=== PATIENT | female | born 1945 | race Caucasian/White ===

== ENCOUNTER 2016-10-28 16:32 | Observation (INO) | payer MEDICARE, OTHER ==
[2016-10-28 16:56] LABS: Hematocrit 40.6 % (37.0-47.0); Hemoglobin 13.2 gm/dL (12.5-16.0); Mean Cell Volume 92.7 fl (78-100); Mean Corpuscular Hemoglobin 30.1 pg (27-31); Mean Corpuscular Hgb Conc 32.5 g/dl (32-36); Mean Platelet Volume 8.6 fl (6.0-9.5); Neutrophil # 4.8 K/mm3 (1.3-6.0); Neutrophil % 63.2 % (42-75.0); Platelet Count 227 K/mm3 (150-450); Red Blood Count 4.38 M/mm3 (4.2-5.4); Red Cell Distribution Width 13.1 % (11.5-14.0); White Blood Count 7.5 K/mm3 (4.0-10.5)
--- NOTE | 2016-10-28 16:56 | ERNOTE ---
Isabel Coma Scale - Assess Eye Opening: Spontaneous Motor: Obeys Commands Verbal: Oriented - Total Coma Scale Total: 15 Initial Stroke Assessment - Date/Time of assessment Stroke Scale Date: 10/28/16 Stroke Scale Time: 16:52 - NIH Stroke Scale Level of Consciousness: Alert LOC Questions (Year and Age): Answers both correctly LOC Commands (open/close eyes/fist): Performs both correctly Lateral Gaze Paresis: None Visual Field Loss: No visual loss Facial Palsy: Minor paralysis Right Arm Motor (10 sec hold): No drift Left Arm Motor (10 sec hold): No drift Right Leg Motor (5 sec hold): No drift Left Leg Motor (5 sec hold): Drift - Paient has Hx of previous stroke with L side weakness Limb Ataxia (finger/nose heel/lagos): Present in 1 limb If present, ataxia in:: Left leg Sensory Loss (pinprick arms/legs/face): No sensory loss Language Aphasia (description/naming/reading): No aphasia; normal Dysarthria (speech clarity): Normal articulation Neglect Inattention (visual/tactile/auditory/spatial/person): No neglect Initial Stroke Scale Score:: 3 - Stroke Risk Assessment Stroke Risk Assessment Level: 1-4 Mild Impairment Stroke Inclusion/Exclusion Cri - A Inclusion (Must answer Yes to meet): Yes, but patient had a recent stroke with L side residual deficits. - Inclusion Questions: Yes Onset of symptoms <3 1/2 hours of admission to ETC: Yes - Exclusion Questions: Major symptoms rapidly improving: Yes Seizure at onset of stroke: No Stroke, head injury, major surgery, serious trauma in 3 mon.: Yes Secondary Stroke Assessment - Date/Time of assessment Stroke Scale Date: 3 Stroke Scale Time: 17:56 - NIH Stroke Scale Level of Consciousness: Alert LOC Questions (Year and Age): Answers both correctly LOC Commands (open/close eyes/fist): Performs both correctly Lateral Gaze Paresis: None Visual Field Loss: No visual loss Facial Palsy: Minor paralysis Right Arm Motor (10 sec hold): No drift Left Arm Motor (10 sec hold): No drift Right Leg Motor (5 sec hold): No drift Left Leg Motor (5 sec hold): Drift Limb Ataxia (finger/nose heel/lagos): Present in 1 limb If present, ataxia in:: Left leg Sensory Loss (pinprick arms/legs/face): No sensory loss Language Aphasia (description/naming/reading): No aphasia; normal Dysarthria (speech clarity): Normal articulation Neglect Inattention (visual/tactile/auditory/spatial/person): No neglect Secondary Stroke Scale Total:: 3
--- OUTSIDE RECORDS SUMMARY | 2016-10-28 17:01 | XMS REPORT | Continuity of Care Document ---
:1945 Author Organization [facility] ([facility]) Address [address] [place] [address] Phone [phone] Care Team Providers Name Role Phone Jean Bender Primary Care Provider [phone] Source Comments This disclosure is being made pursuant to the Care Everywhere program, applicable federal and state laws, and may not contain all informaitonavailable regarding this patient.[facility] ([facility]) Active Allergies and Adverse Reactions Allergen Noted Date Severity Reactions Comments Dichloralphenazone Urticaria (Hives) Fluticasone Respiratory Distress,Headache Hydroxyzine Hcl Urticaria (Hives),Agitation Hydroxyzine Pamoate 08/06/2015 Unknown Isometheptene Urticaria (Hives) Meloxicam 02/19/2012 Respiratory Distress Morphine 07/26/2009 High Dizziness Hypersensitive, not herself, no want the medication Non-Med Tape OTHER skin abrasion Sumatriptan High Urticaria (Hives) Heart palpatations, numbness from the waist down Current Medications Prescription Sig. Disp. Refills Start Date End Date Status POTASSIUM CHLORIDE Take 20 mEq by Active (KLOR-CON M10 PO) mouth daily atorvastatin (LIPITOR) 40 take 40 mg by mouth Active mg tablet daily. furosemide (LASIX) 40 mg Take 40 mg by mouth Active tablet daily Cholecalciferol, Vitamin Take by mouth. Active D3, (VITAMIN D-3) 1,000 unit Chew gabapentin 300 mg capsule Take 300 mg by Active mouth 3 times daily aspirin 81 mg EC tablet Take 81 mg by mouth Active daily. pantoprazole 40 mg EC Take 40 mg by mouth Active tablet daily pregabalin (LYRICA) 75 mg Take 75 mg by mouth Active capsule 2 times daily ALPRAZolam 0.5 mg tablet Take 0.5 mg by Active mouth daily clonazePAM 0.5 mg tablet Take 0.5 mg by Active mouth at bedtime Active Problems Problem Noted Date Difficulty walking 05/31/2010 Other physical therapy 05/31/2010 Pain in joint, pelvic region and thigh 02/25/2007 Pain in joint, lower leg 02/25/2007 Follow-up examination, following unspecified surgery 11/19/2006 Essential hypertension, benign 10/16/2006 Pain in joint, ankle and foot 10/16/2006 Dizziness and giddiness 06/29/2004 Headache(784.0) 06/20/2004 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 Dermatophytosis of groin and perianal area 09/26/2000 Blood in stool 09/26/2000 Myalgia and myositis, unspecified 09/26/2000 Abdominal pain, unspecified site 09/26/2000 Most Recent Encounters Date Type Specialty Providers Description 10/22/2016 Orders/Notes Ophthalmology - Dalton Cline, Specialty MD 10/21/2016 Office Visit Ophthalmology - Dalton Thurston I, Dx: PVD ( posterior Specialty MD vitreous detachment), right (Primary Dx) Social History Tobacco Use Types Packs/Day Years Used Date Never Smoker Smokeless Tobacco: Never Used Alcohol Use Drinks/Week oz/Week Comments No Last Filed Vital Signs Vital Sign Reading Time Taken Blood Pressure 122/72 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 Pulse 64 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 Temperature 36.6 C (97.9 F) 02/19/2012 1:00 PM CDT Respiratory Rate 18 02/19/2012 1:00 PM CDT Height 1.448 m (4' 9") 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 Weight 115.1 kg (253 lb 12 oz) 02/19/2012 1:00 PM CDT Body Mass Index 54.9 02/19/2012 1:00 PM CDT Oxygen Saturation 95% 02/19/2012 1:00 PM CDT Plan of Care Date Type Specialty Providers Description 11/08/2016 Appointment Ophthalmology - Paola Ruelas MD Subj: Appointment Specialty [address] [place] [address] [phone] (Fax) Health Maintenance Due Date Last Done Comments HCV Screening 1945 Hepatitis B Vaccine (1 of 3 - Primary Series) 1945 Tdap Vaccine 1957 Lipid Disorder Screening 1963 Td Vaccine 1963 Colonoscopy 12/08/1996 Mammogram 04/14/2000 04/14/1999 Zoster Vaccine 2006 Osteoporosis Screening (DXA Bone Density) 12/10/2011 Pneumococcal Vaccine (1 of 2 - PCV13) 12/10/2011 Influenza Vaccine: Seasonal (#1) 03/27/2016 Results from Last 3 Months Not on file
--- NOTE | 2016-10-28 17:03 | ERNOTE ---
Medical Problem HPI - Narrative Date of Service: 10/28/16 - General Time Seen by Provider: 10/28/16 16:32 Source: patient, EMS Exam Limitations: no limitations - Immun/Allergies/Home Medications Immunizations: IMMUNIZATION HX Immunizations Up to Date Yes History of Influenza Vaccine Yes Hx Pneumococcal Vaccination Yes Allergies/Adverse Reactions: Allergies morphine Allergy (Intermediate, Verified 10/28/16 17:26) Other latex Allergy (Verified 10/28/16 17:26) hydroxyzine HCl [From Vistaril] Adverse Reaction (Mild, Verified 10/28/16 17:26) MOOD CHANGES, ANGRY hydroxyzine pamoate [From Vistaril] Adverse Reaction (Mild, Verified 10/28/16 17 :26) MOOD CHANGES, ANGRY AND IRRITABLE sumatriptan [From Imitrex] Adverse Reaction (Mild, Verified 10/28/16 17:26) N/T FROM WAIST DOWN sumatriptan succinate [From Imitrex] Adverse Reaction (Mild, Verified 10/28/16 17:26) NUMBNESS acetaminophen [From Midrin] Adverse Reaction (Verified 10/28/16 17:26) Nausea albuterol Adverse Reaction (Verified 10/28/16 17:26) Other amitriptyline Adverse Reaction (Verified 10/28/16 17:26) buspirone HCl [From BuSpar] Adverse Reaction (Verified 10/28/16 17:26) dichloralphenazone [From Midrin] Adverse Reaction (Verified 10/28/16 17:26) Nausea fluticasone propionate [From Flovent Diskus] Adverse Reaction (Verified 17:26) isometheptene mucate [From Midrin] Adverse Reaction (Verified 10/28/16 17:26) Nausea lamotrigine [From Lamictal] Adverse Reaction (Verified 10/28/16 17:26) meloxicam [From Mobic] Adverse Reaction (Verified 10/28/16 17:26) Home Medications: HOME MEDICATIONS Aspirin [Aspirin Enteric Coated] 81 mg PO DAILY 05/19/14 [Last Taken Unknown] Atorvastatin Calcium [Lipitor] 40 mg PO DAILY 05/19/14 [Last Taken Unknown] Cholecalciferol (Vitamin D3) [Vitamin D3] 2,000 unit PO DAILY 05/19/14 [Last Taken Unknown] Furosemide [Lasix] 40 mg PO DAILY 05/19/14 [Last Taken Unknown] Venlafaxine HCl [Effexor] 75 mg PO DAILY 05/19/14 [Last Taken Unknown] Gabapentin 300 mg PO TID 04/15/15 [Last Taken Unknown] clonazePAM [Klonopin] 0.5 mg PO DAILY 04/15/15 [Last Taken Unknown] ALPRAZolam [Xanax] 0.5 mg PO BID PRN 12/05/15 [Last Taken Unknown] Ferrous Sulfate 324 mg PO DAILY 12/05/15 [Last Taken Unknown] Pantoprazole Sodium [Protonix] 40 mg PO DAILY 12/05/15 [Last Taken Unknown] Pregabalin [Lyrica] 75 mg PO DAILY 12/05/15 [Last Taken Unknown] traMADol HCL [Ultram] 50 mg PO DAILY 12/05/15 [Last Taken Unknown] - History of Present History Narrative: Patient comes due to slurred speech, numbness, and headache. Patient has Hx of a previous Stroke. Patient also reported some chest pain. No LOC, no SOB, and no Hx of Tx reported by patient. Timing: constant Severity: mild Modifying Factors - (Improves): Present: other - nothing Modifying Factors - (Worsens): Present: movement Review of Systems - Review of Systems Constitutional: Present: malaise EYE: Present: no symptoms reported ENT: Present: no symptoms reported Respiratory: Absent: shortness of breath, cough, orthopnea, wheezing Cardiology: Present: chest pain. Absent: palpitations, syncope, edema, claudication Gastrointestinal/Abdominal: Absent: nausea, vomiting, diarrhea, constipation, abdominal pain, eating less, drinking less Genitourinary: Present: no symptoms reported Musculoskeletal: Absent: no symptoms reported Skin: Present: no symptoms reported Neurological: Present: headache, weakness - Patinet reported L side weakness from previous stroke, numbness. Absent: dizziness/light-headedness, seizure, tingling, tremors, pre-existing deficit Endocrine: Present: no symptoms reported Hematologic/Lymphatic: Present: no symptoms reported Psych: Present: no symptoms reported All Other Systems: All systems neg except as marked - Patient's Past Medical History Patient History - Medical: Anxiety, Fibromyalgia, Other - Stroke with L side neurologic deficits Patient History - Cardiac/Respiratory: Hypertension Patient History - Cancer: No Hx of Cancer Patient History - Surgical Procedures: Appendectomy, Cholecystectomy, Patient History - Other: None - Social History Living Situations: home Abuse History: No History of abuse Psych History: No pertinent hx Alcohol Use: none Drug Use: none - Immunizations Immunizations Up to Date: Yes Hx Pneumococcal Vaccination: Yes History of Influenza Vaccine: Yes Physical Exam - Physical Exam General Appearance: Present: wd/wn, alert, no apparent distress, obese Eye Exam: Normal inspection: bilateral, PERRL: bilateral, EOMI: bilateral Ears, Nose, Throat: Present: normal ENT inspection Neck: Present: normal inspection, nontender Respiratory: Present: no respiratory distress, normal breath sounds, no accessory muscle use, chest nontender, lungs clear Cardiovascular/Chest: Present: regular rate, rhythm, no murmur, normal peripheral pulses Gastrointestinal/Abdominal: Present: normal bowel sounds, nontender, nondistended, soft, no organomegaly Extremity Exam: Present: normal inspection, non-tender, normal range of motion, no edema Neurological Exam: Present: alert, oriented, facial droop - mild, motor weakness - L leg area with drifting Skin Exam: Present: normal color, warm/dry Lymphatic Exam: Present: no adenopathy ED Progress - Date and Time Seen: Date and Time: 10/28/16 17:55 Patient with no worsening and improvement. Patient has no distress. Patient will be place in hospital for further evaluation and management. 10/28/16 17:56 Call to Hospitalist Placed 10/28/16 18:17 Case has been accepted by Hospitalist. - Results and Orders Patient's Lab Results:: I have reviewed the patient's lab results. Results and Orders: CBC: Negative CMP: Mild Hypernatremia Trop: Negative - Vital Signs Patient's Vital Signs:: I have reviewed the patient's vital signs. Vital Signs: BP: 176/74, HR: 77, RR: 11, O2 Sat: 99%, Temp: 37.8 - EKG EKG: atrial fibrillation EKG read: Interp. by me EKG Comments: HR: 78, A. Fib with AVR, No ST Elevation, LAD, LVH - X-Ray X-Ray #1 X-Ray: chest Interpretation: Interp. by me X-ray Comments: No consolidates and no infiltrates. - CT/Ultrasound CT/Ultrasound Narrative: No acute pathology reported by Radiologist - Progress/Reassessment Progress:: Improved - Transfer of Care Expected Disposition: Admit Departure - Departure Clinical Impression: TIA (transient ischemic attack) Qualifiers: Transient cerebral ischemia type: unspecified Qualified Code(s): G45.9 - Transient cerebral ischemic attack, unspecified Chest pain Qualifiers: Chest pain type: unspecified Qualified Code(s): R07.9 - Chest pain, unspecified Disposition: [facility] Condition: Good
[2016-10-28 17:06] LABS: Prothrombin Time (Patient) 10.2 Seconds (9.4-11.4)
[2016-10-28 17:07] LABS: INR 0.98 INR (0.90-1.10)
[2016-10-28 17:12] LABS: ALT 28 U/L (19-67); AST 21 U/L (0-48); Albumin * 3.8 gm/dl (3.4-5.0); Alkaline Phosphatase * 112 U/L (50-170); Anion Gap 11.3 mmol/L (6.8-13.8); BUN/Creatinine Ratio 8.2 (9.0-21.6); Bilirubin, Total 0.3 mg/dL (0.0-1.1); Blood Urea Nitrogen 9 mg/dL (3-23); Ca. Corrected For Albumin 9.8 mg/dL (8.4-10.2); Carbon Dioxide 30.3 mmol/L (24-32.6); Chloride 106 mmol/L (97-106); Glucose * 97 mg/dL (70-110); Potassium 3.6 mmol/L (3.4-4.6); Sodium 144 mmol/L (132-142); Total Protein 7.2 gm/dL (6.2-8.2); Troponin I Less than 0.017 ng/ml (0.00-0.10)
[2016-10-28 18:10] LABS: Urine Appearance Clear; Urine Bilirubin Negative (NEGATIVE); Urine Blood Negative /ul (NEGATIVE); Urine Color Yellow; Urine Ketone Negative (NEGATIVE); Urine Nitrite Negative (NEGATIVE); Urine Protein Negative (NEGATIVE); Urine RBC None Seen /hpf (0-5); Urine Specific Gravity 1.005 SP.GR. (1.005-1.010); Urine Urobilinogen Normal (NORMAL); Urine WBC 0-5 /hpf (0-5)
[2016-10-28 18:11] LABS: Urine Bacteria None Seen
--- OUTSIDE RECORDS SUMMARY | 2016-10-28 18:24 | XMS REPORT | Continuity of Care Document ---
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 Pulse 64 08/06/2015 1:14 PM [employer] Temperature 36.6 C (97.9 F) 02/19/2012 1:00 PM CDT Respiratory Rate 18 02/19/2012 1:00 PM CDT Height 1.448 m (4' 9") 08/06/2015 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
[2016-10-28] MEDS ORDERED: ASPIRIN 81 MG TAB.CHEW ONE (18:28)
--- NOTE | 2016-10-28 23:41 | HP ---
Chief Complaint - Chief Complaint Date of Service: 10/28/16 Time of Service: 20:00 Chief Complaint: Weakness and chest pain History of Present Illness: 70 years old female adm to the hospital from the ER with reports of left side hemiparesis and chest pain that self resolved. PMH significant for CVA 07/2016 , Afib (pt refused oral anticoag due to potential side effects), hypertension, anxiety, lipoma, sleep apnea, RLS, sciatica, SVT. Pt stated while at home she felt spasm like pain in her lower abdomen that gradually moved up to her chest. Her left side felt weak and she was unable to talk in complete sentences. She called her family who called the EMS and she was brought o the ER. Pt reported associated s/s nausea,slurred speech, palpitation and dizziness. She denies vomiting, diaphoresis, blurred vision and headache. In ER CT head: No acute intra-cranial abnormality, CXR no acute cardiopulmonary findings. Plan of care discussed with pt she verbalized understanding an agree. - Patient's Past Medical History Patient History - Medical: Anxiety, Dementia, Depression, Fibromyalgia, Kidney stone, Migraines, Obesity, UTI'S, Other - RLS, sciatica, PUD, lipoma Patient History - Cardiac/Respiratory: Atrial Fibrillation, Asthma, CVA/Stroke - 07/2016, Hypertension, CPAP/BiPAP Home Use, Sleep Apnea Patient History - Cancer: No Hx of Cancer Patient History - Surgical Procedures: Appendectomy, Cataracts, Cholecystectomy , , Hysterectomy Patient History - Other: None LMP (females 10-50): Menopausal - Family History Mother Family History - Cardiac/Respiratory: Bronchitis, COPD Family History - Cancer: Bladder Father Family History - Medical: Diabetes Type 2 Family History - Cardiac/Respiratory: Coronary Heart Disease, Hypertension, Pneumonia Family History - Cancer: Melanoma - Social History Living Situations: other Abuse History: No History of abuse Psych History: Hx of Anxiety, Hx of Depression Smoking Status: Never smoker Have you smoked in the past 12 months: No Do you dip or chew tobacco: No Patient requests Smoking Cessation Consult: No Initiate information on Smoking Cessation: No Alcohol Use: none Drug Use: none - Immunizations Immunizations Up to Date: Yes Hx Pneumococcal Vaccination: Yes History of Influenza Vaccine: Yes Review Of Systems (GEN) - Review of Systems Generalized/Overall Review: Present: No Symptoms Reported EENTM: Present: No Symptoms Reported Respiratory: Present: No Symptoms Reported Cardiac: Present: No Symptoms Reported Abdominal: Present: No Symptoms Reported Genitourinary: Present: No Symptoms Reported Musculoskeletal: Present: No Symptoms Reported Neurological: Present: No Symptoms Reported Skin: Present: No Symptoms Reported Endocrine: Present: No Symptoms Reported Immunizations: IMMUNIZATION HX Immunizations Up to Date Yes History of Influenza Vaccine Yes Hx Pneumococcal Vaccination Yes Allergies/Adverse Reactions: Allergies Allergy/AdvReac Type Severity Reaction Status Date / Time morphine Allergy Intermediate Other Verified 10/28/16 17:26 latex Allergy Verified 10/28/16 17:26 hydroxyzine HCl AdvReac Mild MOOD Verified 10/28/16 17:26 [From Vistaril] CHANGES, ANGRY hydroxyzine pamoate AdvReac Mild MOOD Verified 10/28/16 17:26 [From Vistaril] CHANGES, ANGRY AND IRRITABLE sumatriptan [From Imitrex] AdvReac Mild N/T FROM Verified 10/28/16 17:26 WAIST DOWN sumatriptan succinate AdvReac Mild NUMBNESS Verified 10/28/16 17:26 [From Imitrex] acetaminophen [From Midrin] AdvReac Nausea Verified 10/28/16 17:26 albuterol AdvReac Other Verified 10/28/16 17:26 amitriptyline AdvReac Verified 10/28/16 17:26 buspirone HCl [From BuSpar] AdvReac Verified 10/28/16 17:26 dichloralphenazone AdvReac Nausea Verified 10/28/16 17:26 [From Midrin] fluticasone propionate AdvReac Verified 10/28/16 17:26 [From Flovent Diskus] isometheptene mucate AdvReac Nausea Verified 10/28/16 17:26 [From Midrin] lamotrigine [From Lamictal] AdvReac Verified 10/28/16 17:26 meloxicam [From Mobic] AdvReac Verified 10/28/16 17:26 Home Medications: HOME MEDICATIONS Aspirin [Aspirin Enteric Coated] 81 mg PO DAILY 05/19/14 [Last Taken 10/28/16 11 :00] Atorvastatin Calcium [Lipitor] 40 mg PO DAILY 05/19/14 [Last Taken 10/27/16 23: 00] clonazePAM [Klonopin] 0.5 mg PO DAILY 04/15/15 [Last Taken Unknown] ALPRAZolam [Xanax] 0.5 mg PO DAILY 12/05/15 [Last Taken 10/27/16 23:00] Pantoprazole Sodium [Protonix] 40 mg PO DAILY 12/05/15 [Last Taken 10/27/16 23: 00] traMADol HCL [Ultram] 50 mg PO DAILY 12/05/15 [Last Taken 10/26/16] Cholecalciferol (Vitamin D3) [Vitamin D3] 2,000 unit PO DAILY 10/28/16 [Last Taken 10/28/16 11:00] Ferrous Gluconate 240 mg PO BID 10/28/16 [Last Taken 10/28/16 11:00] Furosemide [Lasix] 20 mg PO DAILY 10/28/16 [Last Taken 10/28/16 11:00] Furosemide [Lasix] 20 mg PO DAILY 10/28/16 [Last Taken 10/28/16 11:00] Potassium Chloride 10 meq PO BID 10/28/16 [Last Taken 10/28/16 11:00] Venlafaxine HCl [Effexor Xr] 150 mg PO DAILY 10/28/16 [Last Taken 10/28/16 11:00 ] Exam - Exam Vital Signs: Vital Signs - Last Taken Temp 36.5 C 10/28/16 18:32 Pulse 61 10/28/16 18:32 Resp 20 10/28/16 18:32 BP 176/66 10/28/16 18:32 Pulse Ox 99 10/28/16 18:32 Constitutional: Present: Alert, Oriented x3, Cooperative, Well nourished, No distress, Middle aged ENT Exam: Present: moist mucous membranes Eye Exam: bilateral eye: PERRL Neck: Present: full range of motion Back Exam: Present: normal inspection, no CVA tenderness, no vertebral tenderness Respiratory: Present: chest non-tender, lungs clear, normal breath sounds, no respiratory distress Cardiovascular/Chest: Present: normal peripheral pulses, no chest tenderness, no edema, no gallop, no JVD, no murmur, irregularly irregular Peripheral Pulses: dorsalis-pedis (R): 3+, dorsalis-pedis (L): 3+ Abdomen: Present: Normal bowel sounds, soft, nontender, nondistended, no rebound tenderness /Rectal: Present: Exam deferred Extremity: Present: normal range of motion, non-tender, normal inspection, no pedal edema, no calf tenderness Skin Exam: Present: normal color, warm/dry, no cyanosis Neurologic: Present: oriented x 3 Eye contact: Present: cooperative, good eye contact Thoughts: Present: normal thought pattern Diagnostic Studies: Laboratory Results WBC 7.5 K/mm3 (4.0-10.5) 10/28/16 16:46 RBC 4.38 M/mm3 (4.2-5.4) 10/28/16 16:46 Hgb 13.2 gm/dL (12.5-16.0) 10/28/16 16:46 Hct 40.6 % (37.0-47.0) 10/28/16 16:46 MCV 92.7 fl (78-100) 10/28/16 16:46 MCH 30.1 pg (27-31) 10/28/16 16:46 MCHC 32.5 g/dl (32-36) 10/28/16 16:46 RDW 13.1 % (11.5-14.0) 10/28/16 16:46 Plt Count 227 K/mm3 (150-450) 10/28/16 16:46 MPV 8.6 fl (6.0-9.5) 10/28/16 16:46 Immature Gran % (Auto) 0.50 % (0.001-0.429) H 10/28/16 16:46 Immature Gran # (Auto) 0.04 K/mm3 (0.000-0.0310) H 10/28/16 16:46 Neutrophils % 63.2 % (42-75.0) 10/28/16 16:46 Lymphocytes % 26.0 % (20-51) 10/28/16 16:46 Monocytes % 8.4 % (0.0-9) 10/28/16 16:46 Eosinophils % 1.5 % (0.0-3.0) 10/28/16 16:46 Basophils % 0.4 % (0.0-1.0) 10/28/16 16:46 Nucleated RBC % 0.0 k/mm3 (0-1) 10/28/16 16:46 Neutrophils # 4.8 K/mm3 (1.3-6.0) 10/28/16 16:46 Lymphocytes # 2.0 k/mm3 (1.5-3.5) 10/28/16 16:46 Monocytes # 0.6 k/mm3 (0.0-1.0) 10/28/16 16:46 Eosinophils # 0.1 k/mm3 (0.0-0.7) 10/28/16 16:46 Absolute Basophils 0.0 k/mm3 (0.0-0.1) 10/28/16 16:46 ESR 22 mm/hr (0-15) H 10/28/16 16:46 PT 10.2 Seconds (9.4-11.4) 10/28/16 16:46 INR (Anticoag Therapy) 0.98 INR (0.90-1.10) 10/28/16 16:46 PTT (Brandon) 24.0 Seconds (24-32) 10/28/16 16:46 Sodium 144 mmol/L (132-142) H 10/28/16 16:46 Plasma Sodium 144 mmol/L (130-142) H 10/28/16 16:46 Potassium 3.6 mmol/L (3.4-4.6) 10/28/16 16:46 Chloride 106 mmol/L (97-106) 10/28/16 16:46 Carbon Dioxide 30.3 mmol/L (24-32.6) 10/28/16 16:46 Anion Gap 11.3 mmol/L (6.8-13.8) 10/28/16 16:46 BUN 9 mg/dL (3-23) 10/28/16 16:46 Creatinine 1.10 mg/dL (0.4-1.4) 10/28/16 16:46 Est GFR (Non-Af Amer) 52 mL/min (60-130) L 10/28/16 16:46 BUN/Creatinine Ratio 8.2 (9.0-21.6) L 10/28/16 16:46 Random Glucose 97 mg/dL (70-110) 10/28/16 16:46 Calcium 10.0 mg/dL (7.9-10.9) 10/28/16 16:46 Calcium Adj for Albumin 9.8 mg/dL (8.4-10.2) 10/28/16 16:46 Total Bilirubin 0.3 mg/dL (0.0-1.1) 10/28/16 16:46 AST 21 U/L (0-48) 10/28/16 16:46 ALT 28 U/L (19-67) 10/28/16 16:46 Alkaline Phosphatase 112 U/L (50-170) 10/28/16 16:46 Troponin I Less than 0.017 ng/ml (0.00-0.10) 10/28/16 16:46 Total Protein 7.2 gm/dL (6.2-8.2) 10/28/16 16:46 Albumin 3.8 gm/dl (3.4-5.0) 10/28/16 16:46 Urine Color Yellow 10/28/16 17:55 Urine Appearance Clear 10/28/16 17:55 Urine pH 6.0 pH (5.0-7.0) 10/28/16 17:55 Ur Specific Egan 1.005 SP.GR. (1.005-1.010) 10/28/16 17:55 Urine Protein Negative mg/dL (NEGATIVE) 10/28/16 17:55 Urine Glucose (UA) Negative mg/dL (NEGATIVE) 10/28/16 17:55 Urine Ketones Negative mg/dL (NEGATIVE) 10/28/16 17:55 Urine Blood Negative /ul (NEGATIVE) 10/28/16 17:55 Urine Nitrate Negative (NEGATIVE) 10/28/16 17:55 Urine Bilirubin Negative mg/dl (NEGATIVE) 10/28/16 17:55 Urine Urobilinogen Normal EU/dl (NORMAL) 10/28/16 17:55 Ur Leukocyte Esterase Negative /ul (NEGATIVE) 10/28/16 17:55 Urine RBC None seen /hpf (0-5) 10/28/16 17:55 Urine WBC 0-5 /hpf (0-5) 10/28/16 17:55 Ur Epithelial Cells 0-5 /hpf (0-5) 10/28/16 17:55 Urine Bacteria None seen (NONE) 10/28/16 17:55 Urine Culture Comments No culture indicated 10/28/16 17:55 Assessment/Plan - Narrative Narrative: chronic A-fib Pt refused oral anticoag and stated she only take aspirin 81mg Q day Hypertension On adm 176/66 Monitor vital signs Chest pain- resolved on adm On adm EKG- Afib Aspirin given in ER on adm troponin negative continue to monitor serial TIA- resolved on adm S/P CVA 07/2016 CT head no acute intracranial findings CXR No acute cardio-pulmonary findings. Continue to monitor on telemetry On EKG- Afib Lipid panel pending Sleep apnea Cpap Code status: Full VTE ppx : SCd and ambulate Anticipate discharge home 0-1 day Previous records review Time 45 minutes - Assessment/Plan (1) Afib Problem: Acute (2) Chest pain Problem: Acute Qualifiers: Chest pain type: unspecified Qualified Code(s): R07.9 - Chest pain, unspecified (3) TIA (transient ischemic attack) Problem: Chronic Qualifiers: Transient cerebral ischemia type: unspecified Qualified Code(s): G45.9 - Transient cerebral ischemic attack, unspecified (4) Hypertension Problem: Chronic Qualifiers: Hypertension type: essential hypertension Qualified Code(s): I10 - Essential (primary) hypertension
[2016-10-29] MEDS ORDERED: ALPRAZolam 0.5 MG TABLET PO SCH
[2016-10-29] MEDS ORDERED: PANTOPRAZOLE SODIUM 40 MG TABLET.EC PO SCH
[2016-10-29] MEDS ORDERED: ATORVASTATIN CALCIUM 40 MG TABLET PO SCH
[2016-10-29] MEDS: POTASSIUM CHLORIDE 10 MEQ TABLET.SA PO SCH ×2 (00:12→09:28)
[2016-10-29 00:49] LABS: Chol/HDL Risk Ratio 2.9 mg/dL (3.3-4.4)
[2016-10-29] MEDS ORDERED: ACETAMINOPHEN 500 MG TABLET PO ONE (04:00)
[2016-10-29] MEDS ORDERED: traMADol HCL 50 MG TABLET PO SCH (09:00)
[2016-10-29] MEDS ORDERED: FUROSEMIDE 20 MG TABLET PO SCH ×2 (09:00)
[2016-10-29] MEDS ORDERED: FERROUS GLUCONATE 240 MG PO SCH (09:00)
[2016-10-29] MEDS ORDERED: CHOLECALCIFEROL 1,000 UNIT CAPSULE PO SCH (09:00)
[2016-10-29] MEDS ORDERED: VENLAFAXINE HCL 150 MG CAP.SR.24H PO SCH (09:00)
[2016-10-29] MEDS ORDERED: ASPIRIN 81 MG TABLET.DR PO SCH (09:00)
[2016-10-29 10:32] VITALS: BP 113/59
--- NOTE | 2016-10-29 12:03 | DS ---
(1) TIA (transient ischemic attack) Problem: Chronic Qualifiers: Transient cerebral ischemia type: unspecified Qualified Code(s): G45.9 - Transient cerebral ischemic attack, unspecified (2) Chronic a-fib Problem: Chronic (3) Hypertension Problem: Chronic Qualifiers: Hypertension type: essential hypertension Qualified Code(s): I10 - Essential (primary) hypertension (4) Hyperlipidemia LDL goal <70 Diagnosis(s): On atorvastatin 40 mg daily Problem: Chronic (5) Anxiety and depression Diagnosis(s): On venlafaxine ER 150 mg daily. Problem: Chronic (6) Obesity Diagnosis(s): BMI-42.0 Problem: Chronic Description of Stay: DATE OF ADMISSION: 10/28/2016. DATE OF DISCHARGE: 10/29/2016. DIAGNOSTICS: CT HEAD W/O CONTRAST: 10/28/2016. HOSPITAL COURSE: Berta Acevedo is a 70-year-old woman Berta Acevedo is a 70-year-old WF with a H/O CVA with LT sided weakness[07/2016], chronic A. fib, LIZ, HTN, obesity [BMI 42] ,anxiety and depression who was brought to the ER because of difficulty in speech lasting for approximately 3 hours and chest pain. She had difficulty in getting out her words. She had CT of head without contrast done in the ER which showed chronic microvascular ischemic white matter disease, diffuse brain atrophy with associated increasing size of the CSF containing spaces and no acute intracranial abnormality. Patient was admitted into observation. Serial troponins were negative. Patient in the past had refused oral anticoagulation due to side effects from medication. On talking to the patient today she appears to have changed her mind. Had a long discussion regarding pros and cons of warfarin/DOACs. She is agreeable to going on Eliquis. Side effects of medication were explained to the patient. Over 45 minutes was spent in examination of patient, plan of care, discharge planning, reconciliation of meds, preparation and dictation of discharge summary. Procedures Performed: none Results and Findings: Laboratory Tests 10/28/16 16:46 WBC 7.5 Hgb 13.2 MCV 92.7 Plt Count 227 10/28/16 16:46 Plasma Sodium 144 H Potassium 3.6 Chloride 106 Carbon Dioxide 30.3 BUN 9 Creatinine 1.10 Est GFR (Non-Af Amer) 52 L Random Glucose 97 Calcium Adj for Albumin 9.8 Total Bilirubin 0.3 AST 21 ALT 28 Alkaline Phosphatase 112 Total Protein 7.2 Albumin 3.8 10/28/16 10/29/16 16:46 00:15 Troponin I Less than 0.017 0.018 10/29/16 00:00 Triglycerides 156 Cholesterol 148 LDL Cholesterol 67 L HDL Cholesterol 50 CT head without contrast 10/28/2016: 14:46. There is scattered periventricular and subcortical white matter hypodensities C/ W with chronic microvascular ischemic white matter disease. There is diffuse brain atrophy with associated increasing size of the CSF containing spaces. There is no acute loss of hackett-white differentiation appreciated no mass effect/ midline shift. No intra-axial or extra-axial blood products identified. The visualized paranasal sinuses and mastoid air cells are clear skull base and calvarium are intact IMPRESSION: No acute intracranial abnormalities identified. Discharge Disposition: Home self care Disposition: Home self-care Condition: Undetermined Discharge Activity: Activity as tolerated Discharge Diet: Low salt, Low fat/chol, High Fiber Problem Oriented Discharge Instructions to Patient/Family: Transient Ischemic Attack, [id number] Additional Patient Instructions (free text): Appointment with Dr. Bender 2-3 days after BMP drawn[11/23/2016]. New Medication: Eliquis 5 mg twice a day. Prescriptions (Any new or edited meds): Apixaban [Eliquis] 5 mg PO BID #60 tablet Complete Home Medications List: Complete Home Medication List: Aspirin [Aspirin Enteric Coated] 81 mg PO DAILY 05/19/14 Atorvastatin Calcium [Lipitor] 40 mg PO DAILY 05/19/14 ALPRAZolam [Xanax] 0.5 mg PO DAILY 12/05/15 Pantoprazole Sodium [Protonix] 40 mg PO DAILY 12/05/15 traMADol HCL [Ultram] 50 mg PO DAILY 12/05/15 Cholecalciferol (Vitamin D3) [Vitamin D3] 2,000 unit PO DAILY 10/28/16 Ferrous Gluconate 240 mg PO BID 10/28/16 Furosemide [Lasix] 20 mg PO DAILY 10/28/16 Potassium Chloride 10 meq PO BID 10/28/16 Venlafaxine HCl [Effexor Xr] 150 mg PO DAILY 10/28/16 Apixaban [Eliquis] 5 mg PO BID #60 tablet 10/29/16 Amb Orders for Discharge: Basic Metabolic Panel Time Frame: 11/23/16, Location: Determined By Patient
[2016-10-29] MEDS ORDERED: ASPIRIN 81 MG TAB.CHEW PO SCH (18:20)
[2016-10-29] MEDS ORDERED: ROSUVASTATIN CALCIUM 10 MG TABLET PO SCH (21:00)
== END 2016-10-29 15:52 | disposition home or self-care (01) ==
LOC: ER 16:32 → UNDOADMOB 18:20 → MS 18:20
PROVIDERS: ADMIT Internal Medicine; ATTEND Internal Medicine
DX: G45.9 Transient cerebral ischemic attack, unspecified (principal); I48.2 Chronic atrial fibrillation; I10 Essential (primary) hypertension; E78.5 Hyperlipidemia, unspecified; F41.8 Other specified anxiety disorders; E66.9 Obesity, unspecified; R07.9 Chest pain, unspecified; G47.30 Sleep apnea, unspecified
CPT/HCPCS: 36415; 70450; 71010; 80053; 80061; 81001; 84484; 85025; 85610; 85652; 85730; 93005; 94660; 99284; G0378

== ENCOUNTER 2017-02-14 15:08 | Emergency (ER) | payer MEDICARE, OTHER ==
[2017-02-14 16:45] LABS: Hematocrit 42.9 % (37.0-47.0); Hemoglobin 13.8 gm/dL (12.5-16.0); Mean Cell Volume 92.3 fl (78-100); Mean Corpuscular Hemoglobin 29.7 pg (27-31); Mean Corpuscular Hgb Conc 32.2 g/dl (32-36); Mean Platelet Volume 8.6 fl (6.0-9.5); Neutrophil # 5.8 K/mm3 (1.3-6.0); Neutrophil % 74.2 % (42-75.0); Platelet Count 248 K/mm3 (150-450); Red Blood Count 4.65 M/mm3 (4.2-5.4); Red Cell Distribution Width 13.1 % (11.5-14.0); White Blood Count 7.8 K/mm3 (4.0-10.5)
[2017-02-14 16:47] LABS: Urine Bilirubin Negative (NEGATIVE); Urine Blood Negative /ul (NEGATIVE); Urine Ketone Negative (NEGATIVE); Urine Nitrite Negative (NEGATIVE); Urine Protein Negative (NEGATIVE); Urine Urobilinogen Normal (NORMAL)
[2017-02-14 17:08] LABS: BUN/Creatinine Ratio 12.4 (9.0-21.6); Bilirubin, Total 0.5 mg/dL (0.0-1.1); Ca. Corrected For Albumin 9.9 mg/dL (8.4-10.2); Calcium * 10.2 mg/dL (7.9-10.9); Carbon Dioxide 34.8 mmol/L (24-32.6); Potassium 3.8 mmol/L (3.4-4.6); TSH * 1.243 uIU/mL (0.358-3.74); Total Protein 7.6 gm/dL (6.2-8.2)
--- NOTE | 2017-02-14 17:17 | ERNOTE ---
Medical Problem HPI - Narrative Date of Service: 02/14/17 - General Chief Complaint: General Assessment Time Seen by Provider: 02/14/17 16:11 Source: patient Exam Limitations: no limitations - Immun/Allergies/Home Medications Immunizations: IMMUNIZATION HX Immunizations Up to Date Yes History of Influenza Vaccine Yes Hx Pneumococcal Vaccination Yes Allergies/Adverse Reactions: Allergies morphine Allergy (Intermediate, Verified 02/14/17 15:22) Other latex Allergy (Verified 02/14/17 15:22) hydroxyzine HCl [From Vistaril] Adverse Reaction (Mild, Verified 02/14/17 15:22) MOOD CHANGES, ANGRY hydroxyzine pamoate [From Vistaril] Adverse Reaction (Mild, Verified 02/14/17 15 :22) MOOD CHANGES, ANGRY AND IRRITABLE sumatriptan [From Imitrex] Adverse Reaction (Mild, Verified 02/14/17 15:22) N/T FROM WAIST DOWN sumatriptan succinate [From Imitrex] Adverse Reaction (Mild, Verified 02/14/17 15:22) NUMBNESS acetaminophen [From Midrin] Adverse Reaction (Verified 02/14/17 15:22) Nausea albuterol Adverse Reaction (Verified 02/14/17 15:22) Other amitriptyline Adverse Reaction (Verified 02/14/17 15:22) buspirone HCl [From BuSpar] Adverse Reaction (Verified 02/14/17 15:22) dichloralphenazone [From Midrin] Adverse Reaction (Verified 02/14/17 15:22) Nausea fluticasone propionate [From Flovent Diskus] Adverse Reaction (Verified 15:22) isometheptene mucate [From Midrin] Adverse Reaction (Verified 02/14/17 15:22) Nausea lamotrigine [From Lamictal] Adverse Reaction (Verified 02/14/17 15:22) meloxicam [From Mobic] Adverse Reaction (Verified 02/14/17 15:22) Home Medications: HOME MEDICATIONS Aspirin [Aspirin Enteric Coated] 81 mg PO DAILY 05/19/14 [Last Taken 10/28/16 11 :00] Atorvastatin Calcium [Lipitor] 40 mg PO DAILY 05/19/14 [Last Taken 10/27/16 23: 00] ALPRAZolam [Xanax] 0.5 mg PO DAILY 12/05/15 [Last Taken 10/27/16 23:00] Pantoprazole Sodium [Protonix] 40 mg PO DAILY 12/05/15 [Last Taken 10/27/16 23: 00] traMADol HCL [Ultram] 50 mg PO DAILY PRN 12/05/15 [Last Taken 10/26/16] Cholecalciferol (Vitamin D3) [Vitamin D3] 2,000 unit PO DAILY 10/28/16 [Last Taken 10/28/16 11:00] Ferrous Gluconate 240 mg PO BID 10/28/16 [Last Taken 10/28/16 11:00] Furosemide [Lasix] 20 mg PO DAILY 10/28/16 [Last Taken 10/28/16 11:00] Potassium Chloride 10 meq PO DAILY 10/28/16 [Last Taken 10/28/16 11:00] Venlafaxine HCl [Effexor Xr] 150 mg PO DAILY 10/28/16 [Last Taken 10/28/16 11:00 ] Apixaban [Eliquis] 5 mg PO BID #60 tablet 10/29/16 [Last Taken Unknown] Loteprednol Etabonate [Lotemax] 5 ml OP DAILY 11/22/16 [Last Taken Unknown] clonazePAM [Klonopin] 0.5 mg PO DAILY 11/22/16 [Last Taken Unknown] - History of Present History Narrative: Pt. comes in with c/o weakness, tremors, R facial droop, and slurred speech. Pt. has a hx of previous CVAs and TIAs and weakness and tremors occurs before each one. Pt. states that symptoms started two days ago and are intermittent with most recent episode starting two hours prior to arrival and was resolved upon arrival and worsened again during exam. Pt. denies any incereased weakness on one side vs the other, SOB, CP, NVD, fever, recent illness or injury. Review of Systems - Review of Systems Constitutional: Present: weakness, fatigue. Absent: recent illness, fever, chills, malaise EYE: Present: no symptoms reported ENT: Present: no symptoms reported. Absent: nose pain, nose congestion, nasal drainage, sore throat Respiratory: Present: no symptoms reported. Absent: shortness of breath, cough , wheezing Cardiology: Present: no symptoms reported. Absent: chest pain, palpitations, edema Gastrointestinal/Abdominal: Present: no symptoms reported. Absent: nausea, vomiting, abdominal pain Genitourinary: Present: no symptoms reported Musculoskeletal: Present: back pain. Absent: neck pain, joint pain Skin: Present: no symptoms reported. Absent: rash, change in hair/nails Neurological: Present: headache, dizziness/light-headedness, weakness, tremors. Absent: numbness, tingling All Other Systems: All systems neg except as marked - Patient's Past Medical History Patient History - Medical: Anxiety, Dementia, Depression, Fibromyalgia, Kidney stone, Migraines, Obesity, UTI'S Patient History - Cardiac/Respiratory: Atrial Fibrillation, Asthma, CVA/Stroke, Hypertension, TIA, CPAP/BiPAP Home Use, Sleep Apnea Patient History - Cancer: No Hx of Cancer Patient History - Surgical Procedures: Appendectomy, Cataracts, Cholecystectomy , , Hysterectomy Patient History - Other: None - Family History Mother Family History - Cardiac/Respiratory: Bronchitis, COPD Family History - Cancer: Bladder Father Family History - Medical: Diabetes Type 2 Family History - Cardiac/Respiratory: Coronary Heart Disease, Hypertension, Pneumonia Family History - Cancer: Melanoma - Social History Living Situations: other Abuse History: No History of abuse Psych History: Hx of Anxiety, Hx of Depression Smoking Status: Never smoker Alcohol Use: none Drug Use: none - Immunizations Immunizations Up to Date: Yes Hx Pneumococcal Vaccination: Yes History of Influenza Vaccine: Yes Physical Exam - Physical Exam General Appearance: Present: wd/wn, alert, no apparent distress Eye Exam: Normal inspection: bilateral, PERRL: bilateral, EOMI: bilateral Ears, Nose, Throat: Present: normal ENT inspection, normal pharynx Neck: Present: normal inspection, nontender. Absent: lymphadenopathy (R), lymphadenopathy (L) Respiratory: Present: no respiratory distress, normal breath sounds, no accessory muscle use, chest nontender, lungs clear Cardiovascular/Chest: Present: regular rate, rhythm, no murmur, normal peripheral pulses Gastrointestinal/Abdominal: Present: normal bowel sounds, nontender, nondistended, soft, no organomegaly Back Exam: Present: normal range of motion, no CVA tenderness, vertebral tenderness - T7-S1 Extremity Exam: Present: normal inspection, non-tender, normal range of motion, no edema Neurological Exam: Present: alert, oriented, normal mood/affect, no motor/ sensory deficits, other - tremors and weakness increased as exam progressed generalized Skin Exam: Present: normal color, warm/dry. Absent: pallor, skin rash ED Progress - Date and Time Seen: Date and Time: 02/14/17 18:10 Feel taht as this is chronic pt. does not need acute MRI but does need follow up with her PCP and possiblre further referral to determine cause of symptoms differentials include vessel disease, lewy body dementia, MS. 02/14/17 18:12 Will not treat urine as UTI until culture returns as there are no nitrates and are epithelial cels in urine I feel it may have been a dirty catch. 02/14/17 19:58 Nurses unable to get IV so pt. drank 480ml of fluid while here and Dr Canales recommends not having her complete IV fluids as she can drink so will do this and hope that pt. does not become dehydrated once she gets home again. Educated her family that she should not drive anymore if weak and should be monitorred to make sure that she increases her fluid intake. - Results and Orders Patient's Lab Results:: I have reviewed the patient's lab results. - Vital Signs Patient's Vital Signs:: I have reviewed the patient's vital signs. Vital Signs: Vital Signs 02/14/17 02/14/17 15:17 17:02 Temperature 37.6 C H 36.0 C L Pulse Rate 70 74 Respiratory 14 16 Rate Blood Pressure 145/82 138/78 O2 Sat by Pulse 93 93 Oximetry - X-Ray X-Ray #1 X-Ray: thoracic Interpretation: Reviewed by me X-ray Comments: multilevel degenerative changes no obvious acute ossious abnormality X-Ray #2 X-Ray: lumbosacral Interpretation: Reviewed by me X-ray Comments: Multilevel degenerative changes, no obvious acute ossius abnormality. Round opacification R flank likely fecalith - Progress/Reassessment Chief Complaint: General Assessment Progress:: Improved Departure - Departure Clinical Impression: Essential tremor, Cerebral microvascular disease Degenerative disk disease Qualifiers: Spinal region: thoracolumbar Qualified Code(s): M51.35 - Other intervertebral disc degeneration, thoracolumbar region Disposition: Home self-care Condition: Good Instructions: Essential Tremor Additional Instructions: Please follow up with Dr Bender in 2-3 days as you need further evaluation of symptoms. Referrals: Jean Bender DO [Primary Care Provider] -
[2017-02-14 17:18] LABS: Urine Appearance Slightly Cloudy; Urine Bacteria 2+; Urine Color Yellow; Urine RBC None Seen /hpf (0-5)
[2017-02-14] MEDS ORDERED: NORMAL SALINE 1,000 ML IV ONE (18:02)
[2017-02-14 19:35] VITALS: BP 136/67
[2017-02-14] MEDS ORDERED: NAPROXEN SODIUM 550 MG TABLET PO ONE (20:02)
[2017-02-14] MEDS ORDERED: NAPROXEN SODIUM 550 MG TABLET ONE (20:06)
== END 2017-02-14 20:20 | disposition home or self-care (01) ==
LOC: ER 15:08
DX: G25.0 Essential tremor (principal); I67.9 Cerebrovascular disease, unspecified; M51.35 Other intervertebral disc degeneration, thoracolumbar region; Z87.440 Personal history of urinary (tract) infections; Z87.442 Personal history of urinary calculi; F41.9 Anxiety disorder, unspecified; F32.9 Major depressive disorder, single episode, unspecified; I48.91 Unspecified atrial fibrillation; Z79.01 Long term (current) use of anticoagulants; I63.9 Cerebral infarction, unspecified; I10 Essential (primary) hypertension

== ENCOUNTER 2017-05-31 13:50 | Emergency (ER) | payer MEDICARE, OTHER ==
[2017-05-31 14:34] LABS: Hematocrit 43.3 % (37.0-47.0); Mean Cell Volume 92.1 fl (78-100); Mean Corpuscular Hemoglobin 29.8 pg (27-31); Mean Corpuscular Hgb Conc 32.3 g/dl (32-36); Mean Platelet Volume 8.5 fl (6.0-9.5); Neutrophil # 5.3 K/mm3 (1.3-6.0); Neutrophil % 67.2 % (42-75.0); Platelet Count 230 K/mm3 (150-450); White Blood Count 7.9 K/mm3 (4.0-10.5)
[2017-05-31 14:50] LABS: Albumin * 3.6 gm/dl (3.4-5.0); Anion Gap 7.6 mmol/L (6.8-13.8); Bilirubin, Total 0.5 mg/dL (0.0-1.1); Ca. Corrected For Albumin 9.2 mg/dL (8.4-10.2); Calcium * 9.2 mg/dL (7.9-10.9); Carbon Dioxide 33.4 mmol/L (24-32.6); Total Protein 6.9 gm/dL (6.2-8.2)
[2017-05-31 14:59] VITALS: BP 126/52
--- NOTE | 2017-05-31 15:02 | ERNOTE ---
Back Pain ER HPI Date of Service: 05/31/17 Presenting Symptoms: injury/pain to back Time Seen by Provider: 05/31/17 14:06 Source: patient Exam Limitations: no limitations Immunizations: IMMUNIZATION HX Immunizations Up to Date Yes History of Influenza Vaccine Yes Hx Pneumococcal Vaccination Yes Allergies/Adverse Reactions: Allergies morphine Allergy (Intermediate, Verified 05/31/17 14:01) Other latex Allergy (Verified 05/31/17 14:01) hydroxyzine HCl [From Vistaril] Adverse Reaction (Mild, Verified 05/31/17 14:01) MOOD CHANGES, ANGRY hydroxyzine pamoate [From Vistaril] Adverse Reaction (Mild, Verified 05/31/17 14 :01) MOOD CHANGES, ANGRY AND IRRITABLE sumatriptan [From Imitrex] Adverse Reaction (Mild, Verified 05/31/17 14:01) N/T FROM WAIST DOWN sumatriptan succinate [From Imitrex] Adverse Reaction (Mild, Verified 05/31/17 14:01) NUMBNESS acetaminophen [From Midrin] Adverse Reaction (Verified 05/31/17 14:01) Nausea albuterol Adverse Reaction (Verified 05/31/17 14:01) Other amitriptyline Adverse Reaction (Verified 05/31/17 14:01) buspirone HCl [From BuSpar] Adverse Reaction (Verified 05/31/17 14:01) dichloralphenazone [From Midrin] Adverse Reaction (Verified 05/31/17 14:01) Nausea fluticasone propionate [From Flovent Diskus] Adverse Reaction (Verified 14:01) isometheptene mucate [From Midrin] Adverse Reaction (Verified 05/31/17 14:01) Nausea lamotrigine [From Lamictal] Adverse Reaction (Verified 05/31/17 14:01) meloxicam [From Mobic] Adverse Reaction (Verified 05/31/17 14:01) Home Medications: HOME MEDICATIONS Atorvastatin Calcium [Lipitor] 40 mg PO DAILY 05/19/14 [Last Taken 10/27/16 23: 00] ALPRAZolam [Xanax] 0.5 mg PO BID 12/05/15 [Last Taken 10/27/16 23:00] Pantoprazole Sodium [Protonix] 40 mg PO DAILY 12/05/15 [Last Taken 10/27/16 23: 00] Cholecalciferol (Vitamin D3) [Vitamin D3] 2,000 unit PO DAILY 10/28/16 [Last Taken 10/28/16 11:00] Ferrous Gluconate 240 mg PO BID 10/28/16 [Last Taken 10/28/16 11:00] Furosemide [Lasix] 20 mg PO DAILY 10/28/16 [Last Taken 10/28/16 11:00] Potassium Chloride 10 meq PO DAILY 10/28/16 [Last Taken 10/28/16 11:00] Venlafaxine HCl [Effexor Xr] 150 mg PO DAILY 10/28/16 [Last Taken 10/28/16 11:00 ] Apixaban [Eliquis] 5 mg PO BID #60 tablet 10/29/16 [Last Taken Unknown] Loteprednol Etabonate [Lotemax] 5 ml OP DAILY 11/22/16 [Last Taken Unknown] Ciprofloxacin HCl [Cipro] 500 mg PO BID #14 tab 05/31/17 [Last Taken Unknown] Cyanocobalamin [Vitamin B-12] 1,000 mcg PO DAILY 05/31/17 [Last Taken Unknown] Furosemide [Lasix] 40 mg PO DAILY 05/31/17 [Last Taken Unknown] Narrative: Pt. comes in with c/o R flank pain for two days. Pt. states that pain radiates to her R side. Pt. denies any abd pain, vomiting or diarrhea, fever, SOB, CP, dysuria, or hematuria. Pt. is on lasix and states that recently she has not been urinating as much as usual and she has had nausea. Pt. denies any alleviating factors, aggravating factors, or prehospital treatment. Review of Systems - Review of Systems Constitutional: Present: no symptoms reported. Absent: recent illness, fever, chills, weakness, fatigue, malaise EYE: Present: no symptoms reported ENT: Present: no symptoms reported Respiratory: Present: no symptoms reported. Absent: shortness of breath, cough , wheezing Cardiology: Present: no symptoms reported. Absent: chest pain, palpitations, edema Gastrointestinal/Abdominal: Present: nausea. Absent: vomiting, diarrhea, abdominal pain Genitourinary: Present: pain - R flank, decreased urinary output. Absent: frequency, dysuria, hematuria Musculoskeletal: Present: back pain - R flank. Absent: neck pain, joint pain Skin: Present: no symptoms reported. Absent: change in color Neurological: Present: no symptoms reported. Absent: headache, dizziness/light- headedness, numbness, tingling All Other Systems: All systems neg except as marked - Patient's Past Medical History Patient History - Medical: Anxiety, Dementia, Depression, Fibromyalgia, Kidney stone, Migraines, Obesity, UTI'S Patient History - Cardiac/Respiratory: Atrial Fibrillation, Asthma, CVA/Stroke, Hypertension, TIA, CPAP/BiPAP Home Use, Sleep Apnea Patient History - Cancer: No Hx of Cancer Patient History - Surgical Procedures: Appendectomy, Cataracts, Cholecystectomy , , Hysterectomy Patient History - Other: None - Family History Mother Family History - Cardiac/Respiratory: Bronchitis, COPD Family History - Cancer: Bladder Father Family History - Medical: Diabetes Type 2 Family History - Cardiac/Respiratory: Coronary Heart Disease, Hypertension, Pneumonia Family History - Cancer: Melanoma - Social History Living Situations: home Abuse History: No History of abuse Psych History: Hx of Anxiety, Hx of Depression Alcohol Use: none Drug Use: none - Immunizations Immunizations Up to Date: Yes Hx Pneumococcal Vaccination: Yes History of Influenza Vaccine: Yes Physical Exam - Physical Exam General Appearance: Present: wd/wn, alert, no apparent distress Head Exam: Present: normal inspection, no evidence of injury Eye Exam: Normal inspection: bilateral Respiratory: Present: no respiratory distress, normal breath sounds, no accessory muscle use, chest nontender, lungs clear Cardiovascular/Chest: Present: regular rate, rhythm, no murmur, normal peripheral pulses Gastrointestinal/Abdominal: Present: normal bowel sounds, nontender, nondistended, soft, no organomegaly Back Exam: Present: normal range of motion, no vertebral tenderness, CVA tenderness (R) Extremity Exam: Present: normal inspection, non-tender, normal range of motion, no edema Skin Exam: Present: normal color, warm/dry. Absent: pallor, skin rash ED Progress - Results and Orders Patient's Lab Results:: I have reviewed the patient's lab results. - Vital Signs Patient's Vital Signs:: I have reviewed the patient's vital signs. Vital Signs: Vital Signs 05/31/17 13:55 Temperature 36.4 C L Pulse Rate 76 Respiratory 12 Rate Blood Pressure 125/50 O2 Sat by Pulse 97 Oximetry - Progress/Reassessment Chief Complaint: Back Pain Departure Clinical Impression: Pyelonephritis - Departure Disposition: Home self-care Condition: Good Instructions: Pyelonephritis, Adult Additional Instructions: Please follow up with your primary provider in 2-3 days if not improved. Referrals: Jean Bender DO [Primary Care Provider] - Prescriptions: Ciprofloxacin HCl [Cipro] 500 mg PO BID #14 tab
[2017-05-31 15:06] LABS: Urine Bilirubin Negative (NEGATIVE); Urine Ketone Negative (NEGATIVE); Urine Nitrite Negative (NEGATIVE); Urine Protein Negative (NEGATIVE); Urine Specific Gravity 1.015 SP.GR. (1.005-1.010); Urine Urobilinogen Normal (NORMAL)
[2017-05-31 15:26] LABS: Urine Appearance Slightly Cloudy; Urine Bacteria 2+; Urine Blood 5 /ul (NEGATIVE); Urine Color Yellow; Urine RBC 0-5 /hpf (0-5)
[2017-05-31 15:27] LABS: Urine Amorphous Sediment Moderate - 2+ (NONE-FEW)
== END 2017-05-31 15:34 | disposition home or self-care (01) ==
LOC: ER 13:50
DX: N12 Tubulo-interstitial nephritis, not specified as acute or chronic (principal); Z87.442 Personal history of urinary calculi; Z87.440 Personal history of urinary (tract) infections; Z86.73 Personal history of transient ischemic attack (TIA), and cerebral infarction without residual deficits; I48.91 Unspecified atrial fibrillation; Z79.01 Long term (current) use of anticoagulants; I10 Essential (primary) hypertension; F32.9 Major depressive disorder, single episode, unspecified; F41.9 Anxiety disorder, unspecified

== ENCOUNTER 2017-10-16 13:33 | Emergency (ER) | payer MEDICARE, MEDICAID ==
[2017-10-16] MEDS ORDERED: ASPIRIN 81 MG TAB.CHEW PO ONE (13:56)
[2017-10-16 14:08] LABS: Hematocrit 43.1 % (37.0-47.0); Hemoglobin 14.4 gm/dL (12.5-16.0); Mean Cell Volume 91.5 fl (78-100); Mean Corpuscular Hemoglobin 30.6 pg (27-31); Mean Corpuscular Hgb Conc 33.4 g/dl (32-36); Mean Platelet Volume 8.7 fl (6.0-9.5); Neutrophil # 6.3 K/mm3 (1.3-6.0); Neutrophil % 72.6 % (42-75.0); Platelet Count 230 K/mm3 (150-450); Red Blood Count 4.71 M/mm3 (4.2-5.4); Red Cell Distribution Width 13.1 % (11.5-14.0); White Blood Count 8.6 K/mm3 (4.0-10.5)
--- NOTE | 2017-10-16 14:20 | ERNOTE ---
Medical Problem HPI - Narrative Date of Service: 10/16/17 - General Chief Complaint: General Assessment Time Seen by Provider: 10/16/17 13:36 Source: patient Exam Limitations: no limitations - Immun/Allergies/Home Medications Immunizations: IMMUNIZATION HX Immunizations Up to Date Yes History of Influenza Vaccine Yes Hx Pneumococcal Vaccination Yes Allergies/Adverse Reactions: Allergies morphine Allergy (Intermediate, Verified 10/16/17 13:41) Other latex Allergy (Verified 10/16/17 13:41) hydroxyzine HCl [From Vistaril] Adverse Reaction (Mild, Verified 10/16/17 13:41) MOOD CHANGES, ANGRY hydroxyzine pamoate [From Vistaril] Adverse Reaction (Mild, Verified 10/16/17 13 :41) MOOD CHANGES, ANGRY AND IRRITABLE sumatriptan [From Imitrex] Adverse Reaction (Mild, Verified 10/16/17 13:41) N/T FROM WAIST DOWN sumatriptan succinate [From Imitrex] Adverse Reaction (Mild, Verified 10/16/17 13:41) NUMBNESS acetaminophen [From Midrin] Adverse Reaction (Verified 10/16/17 13:41) Nausea albuterol Adverse Reaction (Verified 10/16/17 13:41) Other amitriptyline Adverse Reaction (Verified 10/16/17 13:41) buspirone HCl [From BuSpar] Adverse Reaction (Verified 10/16/17 13:41) dichloralphenazone [From Midrin] Adverse Reaction (Verified 10/16/17 13:41) Nausea fluticasone propionate [From Flovent Diskus] Adverse Reaction (Verified 13:41) isometheptene mucate [From Midrin] Adverse Reaction (Verified 10/16/17 13:41) Nausea lamotrigine [From Lamictal] Adverse Reaction (Verified 10/16/17 13:41) meloxicam [From Mobic] Adverse Reaction (Verified 10/16/17 13:41) Home Medications: HOME MEDICATIONS Atorvastatin Calcium [Lipitor] 40 mg PO DAILY 05/19/14 [Last Taken 10/27/16 23: 00] ALPRAZolam [Xanax] 0.5 mg PO BID 12/05/15 [Last Taken 10/27/16 23:00] Pantoprazole Sodium [Protonix] 40 mg PO DAILY 12/05/15 [Last Taken 10/27/16 23: 00] Cholecalciferol (Vitamin D3) [Vitamin D3] 2,000 unit PO DAILY 10/28/16 [Last Taken 10/28/16 11:00] Ferrous Gluconate 240 mg PO BID 10/28/16 [Last Taken 10/28/16 11:00] Furosemide [Lasix] 20 mg PO DAILY 10/28/16 [Last Taken 10/28/16 11:00] Potassium Chloride 10 meq PO DAILY 10/28/16 [Last Taken 10/28/16 11:00] Venlafaxine HCl [Effexor Xr] 150 mg PO DAILY 10/28/16 [Last Taken 10/28/16 11:00 ] Apixaban [Eliquis] 5 mg PO BID #60 tablet 10/29/16 [Last Taken Unknown] Loteprednol Etabonate [Lotemax] 5 ml OP DAILY 11/22/16 [Last Taken Unknown] Ciprofloxacin HCl [Cipro] 500 mg PO BID #14 tab 05/31/17 [Last Taken Unknown] Cyanocobalamin [Vitamin B-12] 1,000 mcg PO DAILY 05/31/17 [Last Taken Unknown] Furosemide [Lasix] 40 mg PO DAILY 05/31/17 [Last Taken Unknown] - History of Present History Narrative: Pt. comes in with c/o B lower back pain that causes her to be SOB when she moves. Pt. also states that she felt her pulse and felt like she was in A fib this morning. Pt. denies any alleviating factors, aggravating factors, prehospital treatment, Chest pain, NVD, diarrhea, constipation, numbness or tingling. Pt. denies any prehospital treatment. Pt. has a hx of R foot pain recently as well as a painful mobile lump in her R dorsal foot. Pt. has a hx of ORIF in this foot. Timing: intermittent Severity: mild Modifying Factors - (Improves): Present: other - denies Modifying Factors - (Worsens): Present: movement Review of Systems - Review of Systems Constitutional: Present: malaise. Absent: fever, chills, weakness, fatigue EYE: Present: no symptoms reported ENT: Present: no symptoms reported Respiratory: Present: shortness of breath. Absent: cough, wheezing Cardiology: Present: no symptoms reported. Absent: chest pain, palpitations, syncope, edema Gastrointestinal/Abdominal: Present: nausea - when she has pain. Absent: vomiting, diarrhea, abdominal pain, eating less, drinking less Genitourinary: Present: no symptoms reported. Absent: pain, decreased urinary output Musculoskeletal: Present: back pain - B flank and low back, joint pain - R dorsal foot. Absent: neck pain Skin: Present: lumps - R dorsal foot. Absent: rash, change in color Neurological: Present: no symptoms reported. Absent: headache, dizziness/light- headedness, numbness, tingling All Other Systems: All systems neg except as marked - Patient's Past Medical History Patient History - Medical: Anxiety, Dementia, Depression, Fibromyalgia, Kidney stone, Migraines, Obesity, UTI'S Patient History - Cardiac/Respiratory: Atrial Fibrillation, Asthma, CVA/Stroke, Hypertension, TIA, CPAP/BiPAP Home Use, Sleep Apnea Patient History - Cancer: No Hx of Cancer Patient History - Surgical Procedures: Appendectomy, Cataracts, Cholecystectomy , , Hysterectomy Patient History - Other: None - Family History Mother Family History - Cardiac/Respiratory: Bronchitis, COPD Family History - Cancer: Bladder Father Family History - Medical: Diabetes Type 2 Family History - Cardiac/Respiratory: Coronary Heart Disease, Hypertension, Pneumonia Family History - Cancer: Melanoma - Social History Living Situations: home Abuse History: No History of abuse Psych History: Hx of Anxiety, Hx of Depression - Immunizations Immunizations Up to Date: Yes Hx Pneumococcal Vaccination: Yes History of Influenza Vaccine: Yes Physical Exam - Physical Exam General Appearance: Present: wd/wn, alert, no apparent distress Head Exam: Present: normal inspection, no evidence of injury, no tenderness w palpation Eye Exam: Normal inspection: bilateral Ears, Nose, Throat: Present: normal ENT inspection, normal pharynx Neck: Present: normal inspection, nontender, supple, full range of motion. Absent: lymphadenopathy (R), lymphadenopathy (L) Respiratory: Present: no respiratory distress, normal breath sounds, no accessory muscle use, chest nontender, lungs clear. Absent: chest tenderness, respiratory distress, crackles, rales, rhonchi, stridor, wheezing Cardiovascular/Chest: Present: regular rate, rhythm, no murmur, normal peripheral pulses. Absent: gallop/S3, gallop/S4 Gastrointestinal/Abdominal: Present: normal bowel sounds, nontender, nondistended, soft, no organomegaly. Absent: mass Back Exam: Present: CVA tenderness (R), CVA tenderness (L), vertebral tenderness - L4- L5. Absent: muscle spasm Extremity Exam: Present: normal range of motion, no edema, bony tenderness - R dorsal foot Neurological Exam: Present: alert, oriented, normal mood/affect, no motor/ sensory deficits, sample sawyer II-XII nml as tested, normal cerebellar test Skin Exam: Present: normal color, warm/dry, other - Pt. with 1cm semisolid mass R dosal foot mobile and tender.. Absent: pallor, skin rash ED Progress - Date and Time Seen: Date and Time: 10/16/17 14:18 Pt. has a hx of back pain and fibromyalgia so unsure if this is new or part of her chronic pain but as pt. is experiencing some SOB with activity will evaluate her cardiac. 10/16/17 15:19 Requested stat EKG at this time pt. dizzy with headache and appears to be in 2nd degree type II heart block or a weinke bach on the cardiac telementry monitor 10/16/17 15:[address] Laurent and as pt. is very dizzy and not feeling well then pt. needs to be transferred for possible pacemaker. 10/16/17 16:[address] Elam and he accepts transfer of pt. with no new orders. 10/16/17 16:[address] Elam requesting that I ensure that pt. wants to go to [facility] as pt originally was requesting to go to [facility] but then stated that it was ok to go to [facility] as she did not want to pay out of pocket for the transfer per the medicare and insurance regulation on ambulance transfer. Asked pt. again if she was ok going to [place] of if she wanted to go to [facility] instead and she stated that she wanted to go to [place] and not delay care any longer or possibly cost herself any money. - Results and Orders Patient's Lab Results:: I have reviewed the patient's lab results. - Vital Signs Patient's Vital Signs:: I have reviewed the patient's vital signs. Vital Signs: Vital Signs 10/16/17 13:36 Temperature 36.5 C Pulse Rate 82 Respiratory 12 Rate Blood Pressure 145/54 O2 Sat by Pulse 100 Oximetry - EKG EKG: nonspecific ST T wave changes, other - SR EKG read: Interp. by me EKG Comments: repeat EKG notable for 2nd degree Mobitz Type I AVB verified with Dr Cobb - X-Ray X-Ray #1 X-Ray: foot Interpretation: Reviewed by me X-ray Comments: No erosion of hardware or acute osseous abnormality X-Ray #2 X-Ray: chest Interpretation: Reviewed by me X-ray Comments: No acute CP process - Progress/Reassessment Chief Complaint: General Assessment Progress:: Unchanged Departure Clinical Impression: Mobitz (type) I (Wenckebach's) atrioventricular block UTI (urinary tract infection) Qualifiers: Urinary tract infection type: site unspecified Hematuria presence: without hematuria Qualified Code(s): N39.0 - Urinary tract infection, site not specified - Departure Disposition: Short Term Hospital Inpatient Condition: Serious Referrals: Jean Bender DO [Primary Care Provider] -
[2017-10-16 14:26] LABS: ALT 23 U/L (19-67); AST 18 U/L (0-48); Alkaline Phosphatase * 124 U/L (50-170); Anion Gap 10.6 mmol/L (6.8-13.8); BNP * 222 pg/mL (5-325); BUN/Creatinine Ratio 12.4 (9.0-21.6); Bilirubin, Total 0.3 mg/dL (0.0-1.1); Blood Urea Nitrogen 14 mg/dL (3-23); Calcium * 10.3 mg/dL (7.9-10.9); Carbon Dioxide 31.7 mmol/L (24-32.6); Chloride 104 mmol/L (97-106); Glucose * 84 mg/dL (70-110); Phosphorus 3.7 mg/dL (2.2-4.2); Potassium 3.3 mmol/L (3.4-4.6); Sodium 143 mmol/L (132-142); Total Protein 7.3 gm/dL (6.2-8.2); Troponin I Less than 0.017 ng/ml (0.00-0.10)
[2017-10-16 14:27] LABS: Urine Bilirubin Negative (NEGATIVE); Urine Blood Negative /ul (NEGATIVE); Urine Ketone Negative (NEGATIVE); Urine Nitrite Negative (NEGATIVE); Urine Protein Negative (NEGATIVE); Urine Specific Gravity <=1.005 SP.GR. (1.005-1.010); Urine Urobilinogen Normal (NORMAL)
[2017-10-16] MEDS ORDERED: POTASSIUM CHLORIDE 20 MEQ TABLET.SA PO ONE (14:32)
[2017-10-16] MEDS ORDERED: ASPIRIN 81 MG TAB.CHEW ONE (14:33)
[2017-10-16 14:40] LABS: Urine Appearance Clear; Urine Bacteria TRACE; Urine Color Pale Yellow; Urine RBC None Seen /hpf (0-5); Urine Renal Epithelial Cell Few - 1+ /hpf; Urine WBC 0-5 /hpf (0-5)
[2017-10-16] MEDS ORDERED: POTASSIUM CHLORIDE 20 MEQ TABLET.SA ONE (14:55)
[2017-10-16 15:51] VITALS: BP 162/74
== END 2017-10-16 16:30 | disposition short-term general hospital (02) ==
LOC: ER 13:33
DX: I44.1 Atrioventricular block, second degree (principal); N39.0 Urinary tract infection, site not specified; Z87.442 Personal history of urinary calculi; Z87.440 Personal history of urinary (tract) infections; Z86.73 Personal history of transient ischemic attack (TIA), and cerebral infarction without residual deficits